=== PATIENT | female | born 1935 | race Caucasian/White ===

== ENCOUNTER → 2017-03-15 | Outpatient (CLI) | payer MEDICARE, OTHER ==
[~2017-03-15] MED LIST: ACETAMINOPHEN PO; AMLODIPINE BESYL5 MG PO; ARIMIDEX1 MG PO; CALCIUM + D 6001 TA1 PO; CALCIUM 500 MG1 EACH PO; CENTRUM SILVER PO; COD LIVER OIL1 CAP PO; FAMVIR500 M1 PO; FISH OIL 1,2001 CAP PO; FLAGYL PO; GLYBURIDE-METFO1 TA2 PO; HYDRALAZINE HCL25 MG PO; HYDROCODON-ACE1 EAC7 PO; K-DUR20 ME1 PO; KCL PO; LASIX20 MG PO; LIPITOR20 MG PO; LISINOPRIL-HCTZ1 T14 PO; LISINOPRIL-HCTZ1 T20 PO; LOPRESSOR100 MG PO; METFORMIN HCL500 M1 PO; METOPROLOL SUC100 MG PO; METOPROLOL SUCC50 MG PO; MULTIPLE VITAMI1 T11 PO; NEURONTIN300 MG PO; OMEGA 3 FISH OI1 CAP PO; PREMPRO 0.3 MG1 EACH PO; PRILOSEC PO; PRILOSEC20 M1 PO; SYNTHROID PO; SYNTHROID25 MCG PO; TAMOXIFEN10 MG PO; VITAMIN B-12250 MCG PO; VITAMIN D400 UNI2 PO; [UNRECOGNIZED DRUG - OTHER] PO
--- NOTE | ~2017-03-15 | MY9 ---
[facility] A Service of [facility] RADIOLOGY TEXT RESULTS PATIENT: AIDA YOUNGBLOOD LOCATION: [facility] : 33 UNIT #: [id number] AGE: [address]: Tyler Alexis MD SEX: F ORDER DR: [id number] [facility] [address] [place], [place] [address] [id number] O MR#: [id number] Acc #: [id number] NAME: AIDA YOUNGBLOOD : 1935 SEX: F STUDY DATE/TIME: 03/15/2017 13:01 UNIT: [facility] ROOM: STUDY DESCRIPTION: MY Mammogram Screen Uni Dig Lt Attending Physician: Tyler Alexis M.D. Referring Physician: Generic Doctor Not In System Ordering Physician: Tyler Alexis M.D. Primary Care Physician: Samy Aguilar M.D. MEDICAL IMAGING REPORT This report is preliminary unless electronic signature is present EXAM Unilateral left digital screening mammogram, 03/15/2017. HISTORY 81-year-old woman; prior right mastectomy 2010. Annual screening. COMPARISON Comparison mammograms date to 02/28/2006, with most recent 04/12/2016. FINDINGS Digital imaging of the left breast was completed, utilizing screening protocol. Review includes FDA-approved CAD device. Breast parenchyma is heterogeneous with residual fibronodular opacities noted centrally in the upper outer quadrant. The appearance is stable. I see no dominant mass. There are no interval occurring microcalcifications and no suspicious architectural deformity. IMPRESSION Stable benign unilateral left mammogram. Status post right mastectomy. Annual screening recommended. Patients over the age of 40 are entered into a reminder system with target due date for the next mammogram. A result letter will also be sent to the patient. BIRADS: 2 Benign finding. Dictated by... Derik Espinoza M.D. THIS IS AN ELECTRONICALLY VERIFIED REPORT Derik Espinoza M.D. at 03/15/2017 3:57 PM [facility] A Service of [facility] RADIOLOGY TEXT RESULTS PATIENT: AIDA YOUNGBLOOD LOCATION: [facility] : 33 UNIT #: [id number] AGE: [address]: Tyler Alexis MD SEX: F ORDER DR: RON/wayne TD: 03/15/2017 14:20 JOB #: [id number] MEDICAL IMAGING REPORT Page 1 of 1 COPY
== END | disposition home or self-care (01) ==
LOC: CWCC 12:52
DX: Z12.31 Encounter for screening mammogram for malignant neoplasm of breast (principal); Z90.11 Acquired absence of right breast and nipple
CPT/HCPCS: G0202